=== PATIENT | male | born 1985 | race Caucasian/White ===

== ENCOUNTER 2019-06-17 16:39 | Emergency (ER) | payer OTHER, SELFPAY ==
[~2019-06-17] VITALS: Ht 175.3 cm; Wt 75.0 kg
--- NOTE | 2019-06-17 16:46 | NUR ---
NA X 1
[2019-06-17] MEDS ORDERED: CEFTRIAXONE 1,000 MG ONE (17:13)
--- NOTE | 2019-06-17 17:13 | NUR ---
Pt here for ingrown hair that he removed himself and now has redness and erythmea to penis and scrotum. shaft of penis is slightly swollen. pt reports painful. pt denies iv drug use.
[2019-06-17] MEDS ORDERED: HYDROcodone/APAP 5/325 TABLET ONE (17:14)
[2019-06-17] MEDS ORDERED: LIDOCAINE-MPF 1%, 5ML ONE (17:26)
[2019-06-17] MEDS ORDERED: HYDROcodone/APAP 5/325 TABLET PO ONE (17:30)
[2019-06-17] MEDS ORDERED: CEFTRIAXONE 1,000 MG IM ONE (17:30)
[2019-06-17] MEDS ORDERED: LIDOCAINE-MPF 1%, 5ML INFIL ONE (17:30)
[2019-06-17 19:05] VITALS: BP 120/82
--- NOTE | 2019-06-17 19:45 | NUR ---
Patient/Caregiver given discharge instructions and they have confirmed that they understand the instructions. Patient ambulatory with steady gait.
== END 2019-06-17 19:47 | disposition home or self-care (01) ==
LOC: ED 18:39
DX: L02.214 Cutaneous abscess of groin (principal); F17.200 Nicotine dependence, unspecified, uncomplicated
CPT/HCPCS: 10060; 99283; J0696; 96372

== ENCOUNTER 2019-06-19 23:03 | Emergency (ER) | payer OTHER ==
[~2019-06-19] VITALS: Ht 175.3 cm; Wt 76.4 kg
--- NOTE | 2019-06-19 23:11 | NUR ---
NO ANSWER LOBBY X1
[2019-06-19 23:20] VITALS: BP 126/76
== END 2019-06-20 00:28 | disposition home or self-care (01) ==
LOC: ED 23:27
DX: L02.214 Cutaneous abscess of groin (principal); F17.210 Nicotine dependence, cigarettes, uncomplicated
CPT/HCPCS: 99282; 99406

== ENCOUNTER 2019-06-22 13:47 | Emergency (ER) | payer OTHER ==
[~2019-06-22] VITALS: Ht 175.3 cm; Wt 78.9 kg
[2019-06-22 13:54] VITALS: BP 119/69
--- NOTE | 2019-06-22 15:20 | NUR ---
TALENT ACQUISITION PROJECT MANAGER: PT CALLED FOR ROOM. PT "WENT TO CAR TO GET SOMETHING"
--- NOTE | 2019-06-22 15:24 | NUR ---
CRYSTAL FINISHER: PT TO ROOM FROM [facility]
== END 2019-06-22 15:54 | disposition home or self-care (01) ==
LOC: ED 15:33
DX: Z48.01 Encounter for change or removal of surgical wound dressing (principal)
CPT/HCPCS: 99281